=== PATIENT | male | born 1975 | race Caucasian/White ===

== ENCOUNTER 2016-12-03 22:06 | Inpatient (IN) | payer MEDICAID ==
[~2016-12-03] VITALS: Ht 172.7 cm; Wt 80.6 kg
[~2016-12-03 22:06] MED LIST: ASPI81TA3 PO; HYD25 PO; LOSA25TA5 PO; METO-429 PO; TRAM50TA2 PO
[2016-12-03] MEDS ORDERED: hydrALAzine 20 MG INJ ONE (22:40)
[2016-12-03] MEDS ORDERED: ONDANSETRON 4 MG INJ IV STA (22:50)
[2016-12-03] MEDS ORDERED: morphine 4 MG/ML VIAL IV STA (22:50)
[2016-12-03] MEDS ORDERED: SIMV20TA PO (22:53)
[2016-12-03] MEDS ORDERED: HYD25 PO (22:57)
[2016-12-03] MEDS ORDERED: hydrALAzine 20 MG INJ IV ONE (23:00)
[2016-12-03 23:11] LABS: BASOPHILS % 0.3 % (0.0-2.0); EOSINOPHILS # 0.3 10^3/ul (0.0-0.5); EOSINOPHILS % 2.6 % (0.0-7.0); HEMATOCRIT 44.3 % (42.0-52.0); HEMOGLOBIN 15.2 g/dl (14.0-18.0); LYMPHOCYTES # 1.7 10^3/ul (0.8-2.9); LYMPHOCYTES % 14.3 % (15.0-51.0); MEAN CORPUSCULAR HEMOGLOBIN 29.6 pg (29.0-33.0); MEAN CORPUSCULAR HGB CONC 34.3 g/dl (32.0-37.0); MEAN CORPUSCULAR VOLUME 86.2 fl (82.0-101.0); MEAN PLATELET VOLUME 8.8 fl (7.4-10.4); MONOCYTE # 0.6 10^3/ul (0.3-0.9); MONOCYTES % 4.8 % (0.0-11.0); NEUTROPHIL # 9.5 10^3/ul (1.6-7.5); PLATELET COUNT 193 10^3/UL (140-440); RED BLOOD COUNT 5.14 10^6/ul (4.70-6.10); RED CELL DISTRIBUTION WIDTH 13.1 % (11.5-14.5); UNCORRECTED WBC 12.1 10^3/ul (4.8-10.8); WHITE BLOOD COUNT 12.1 10^3/ul (4.8-10.8)
[2016-12-03 23:18] LABS: ALBUMIN 4.3 g/dl (3.3-4.9)
[2016-12-03 23:19] LABS: CHLORIDE 95 mmol/L (97-110); POTASSIUM 3.3 mmol/L (3.5-5.1); SODIUM 138 mmol/L (135-144)
--- NOTE | 2016-12-03 23:19 | RADRPT ---
PROCEDURE: CT Brain without contrast. CLINICAL INDICATION: Headache TECHNIQUE: A multiplanar CT of the brain was performed on a CT scanner utilizing axial imaging fro m the skull base through the vertex without IV contrast. The CTDIvol is 43.16 mGy and the DLP is 72 0.23 mGycm. One or more of the following dose reduction techniques were utilized: Automated exposu re control, adjustment of the mA and/or kV according to patient size, use of iterative reconstructio n technique. COMPARISON: None FINDINGS: No evidence of intracranial hemorrhage or abnormal extra-axial fluid collection. The brain parenchyma is normal attenuation morphology with preservation of olivares white differentiatio n and age appropriate size of the ventricles and subarachnoid spaces. The posterior fossa contents, brainstem, craniocervical junction, orbits, pituitary axis, paranasal sinuses, mastoid air cells, and calvarium are unremarkable. IMPRESSION: 1. No intracranial hemorrhage or acute intracranial. RPTAT:AAJJ Physician Hira Date Time Electronically viewed and signed by Physician Hira on 12/03/2016 23:18 CECILLE/
[2016-12-03 23:20] LABS: INR 0.91; PROTIME 12.3 Sec (12.2-14.2)
[2016-12-03 23:21] LABS: ANION GAP 17 (8-16); ASPARTATE AMINO TRANSFERASE 39 IU/L (15-46); BILIRUBIN,INDIRECT 0.6 mg/dl (0-1.1); BILIRUBIN,TOTAL 0.6 mg/dl (0.2-1.3); CARBON DIOXIDE 29 mmol/L (21-31); CREATININE 0.97 mg/dl (0.61-1.24); PARTIAL THROMBOPLASTIN TIME 24.7 Sec (25.0-35.0)
--- NOTE | 2016-12-03 23:21 | RADRPT ---
PROCEDURE: XR Chest. CLINICAL INDICATION: Chest pain. TECHNIQUE: Single AP portable chest. COMPARISON: 07/04/2016 FINDINGS: The cardiomediastinal silhouette is within normal limits. Marked aortic ectasia and tortuosity withi n the endovascular aortic stent. .The lungs are clear though pleural effusion or focal consolidation . No pneumothorax. The osseous structures and soft tissues are unremarkable. IMPRESSION: No evidence for active cardiopulmonary disease. Aortic ectasia and tortuosity. RPTAT:AAJJ Dung Moya Physician Date Time Electronically viewed and signed by Physician Hira on 12/03/2016 23:20 CECILLE/
[2016-12-03 23:22] LABS: ALANINE AMINOTRANSFERASE 80 IU/L (13-69); ALBUMIN/GLOBULIN RATIO 1.13; ALKALINE PHOSPHATASE 52 IU/L (42-121); BLOOD UREA NITROGEN 20 mg/dl (7-20); GLUCOSE 115 mg/dl (70-220); TOTAL PROTEIN 8.1 g/dl (6.1-8.1)
[2016-12-03 23:30] LABS: CONDITION 1
[2016-12-03 23:31] LABS: B-TYPE NATRIURETIC PEPTIDE 234 PG/ML (0-125)
[2016-12-03 23:35] LABS: TROPONIN-I < 0.012 ng/ml (0.00-0.12)
--- NOTE | 2016-12-03 23:42 | RADRPT ---
PROCEDURE: CT Chest without contrast. CLINICAL INDICATION: Chest pain. TECHNIQUE: CT scan of the chest without contrast was performed on a multidetector high-resolution CT scanner. Coronal and sagittal reformatted images were obtained from the axial source images. The total exam CTDI equals 13.00 mGy and the total exam DLP equals 529.06 mGy-cm. COMPARISON: Plain film chest dated today, about 1 hour ago. FINDINGS: Thoracic aortic endograft is seen, extending from the proximal arch to the distal thoracic aorta, wi th overlying thoracic aortic aneurysm measuring up to about 70 mm in the region of the posterior arc h and up to about 60 mm in diameter in the mid descending aorta. Dystrophic likely calcifications ar e seen within the thrombus at the posterior thoracic aortic arch. Slightly heterogeneous attenuation within the region of aneurysm thrombus suggests the presence of a n endoleak. Recommend CT angiography of the chest for further evaluation for endoleak. The lungs are clear. No focal opacification, effusion, pneumothorax, edema, or nodules are seen. T here is no pulmonary infiltrate. No mass lesion to suggest neoplasm is identified. The central tra cheobronchial tree is clear. The mediastinum is unremarkable without evidence for mass or lymphadenopathy. The vascular structur es of the mediastinum are normal in course and caliber. The heart size is appears mildly enlarged, w ithout evidence for pericardial thickening or effusion. The axillary regions, subpectoral regions, and supraclavicular regions are all unremarkable. The pack rrounding chest wall is unremarkable. Imaging obtained through the upper abdomen reveals fatty infi ltration of the liver. Nonspecific 2 cm soft tissue attenuation lesion in the posterior right hepati c lobe, and ultrasound examination or IV contrast enhanced CT examination of the abdomen and pelvis may be of further use. Differential considerations include neoplasm. Proximal abdominal aortic aneurysm measures up to 50 mm in diameter and mid abdominal aortic aneurys m measures up to about 46 mm in diameter. Otherwise, no upper abdominal viscera abnormality is iden tified. Osseous structures are generally unremarkable. No osteolytic or osteoblastic lesion is detected. IMPRESSION: 1. Endograft in the thoracic aorta, extending from the proximal to mid arch to the distal thoracic aorta. 2. Overlying thoracic aortic aneurysm measures up to about 70 mm in diameter in the region of the p osterior arch and up to about 60 mm in diameter at the mid descending thoracic aorta. 3. Dystrophic likely calcifications within the mural thrombus at the posterior arch. 4. Recommend CT angiography of the chest for further evaluation of the thoracic aorta for endoleak o r other complication, given the patient's current chest pain. 5. Slightly heterogeneous attenuation within the region of aneurysm thrombus suggests the presence of an endoleak. 6. 50 mm diameter proximal abdominal aortic aneurysm. 7. Fatty infiltration of the liver, with suspected 2 cm soft tissue liver mass. Consider ultrasoun d or IV contrast enhanced CT correlation. RPTAT: UU Physician Earle Date Time Electronically viewed and signed by Physician Earle on 12/03/2016 23:42 RS/
[2016-12-04] VITALS (57 sets, daily range): BP systolic 95–152; BP diastolic 44–94; PULSE 52–78; RESP 11–19; Ht 172.7 cm; Wt 80.6 kg
[2016-12-04] MEDS ORDERED: METOCLOPRAMIDE 10 MG INJ IV ONE (01:00)
[2016-12-04] MEDS ORDERED: DILTIAZEM-D5W 125MG/125ML DRIP 125 ML IV SCH (01:00)
[2016-12-04] MEDS: niCARdipine-D5W 0.1MG/ML DRIP 200 ML IV SCH ×2 (01:05→06:06)
[2016-12-04] MEDS ORDERED: LORAZEPAM 2 MG INJ IV PRN (01:30)
[2016-12-04] MEDS ORDERED: NITROGLYCERIN (SL) 0.4 MG TAB SL PRN (01:30)
--- NOTE | 2016-12-04 02:18 | ERA ---
ER Documentation Chief Complaint Date/Time DATE: 12/04/16 TIME: 02:16 Chief Complaint TSANG ASSOCIATED WITH EMESIS AND DIFFUSED CP TODAY. HPI This is a 41-year-old male who comes in with complaints of diffuse chest pain with emesis today. 2 episodes of vomiting which are nonbloody. Chest pain is pressure-like, substernal with no exacerbating relieving factors. Patient does have a history of aortic dissection with endovascular stenting in the past. ROS All systems reviewed and are negative except as per history of present illness. Medications Home Meds Active Scripts Metoprolol Tartrate* (Lopressor*) 50 Mg Tab, 50 MG PO BID, #60 TAB Prov:LAVINIA MEEHAN MD 07/09/16 Aspirin* (Aspirin* Chew) 81 Mg Tab.chew, 81 MG PO DAILY for 30 Days, TAB.CHEW Prov:LAVINIA MEEHAN MD 07/09/16 Losartan Potassium* (Losartan Potassium*) 25 Mg Tablet, 25 MG PO BID for 30 Days , TAB Prov:LAVINIA MEEHAN MD 07/09/16 Reported Medications Hydrochlorothiazide* (Hydrochlorothiazide*) 25 Mg Tab, 25 MG PO DAILY, #30 TAB 12/03/16 Simvastatin* (Zocor*) 20 Mg Tablet, 20 MG PO BID, #30 TAB 12/03/16 Discontinued Scripts Hydrochlorothiazide* (Hydrochlorothiazide*) 25 Mg Tab, 25 MG PO BID, #60 TAB 0 Refills Prov:LAVINIA MEEHAN MD 07/09/16 Tramadol HCl (Tramadol HCl) 50 Mg Tablet, 50 MG PO Q6H Y for PAIN, #45 TAB Prov:LAVINIA MEEHAN MD 07/09/16 Allergies Allergies: Coded Allergies: No Known Allergy (Unverified , 12/03/16) PMhx/Soc History of Surgery: Yes (AORTIC GRAFT) Anesthesia Reaction: No Hx Neurological Disorder: No Hx Respiratory Disorders: No Hx Cardiac Disorders: Yes (HTN,CAD) Hx Psychiatric Problems: No Hx Miscellaneous Medical Probl: No Hx Alcohol Use: Yes (8 beers/ day) Hx Substance Use: No Hx Tobacco Use: No Smoking Status: Former smoker Physical Exam Vitals Vital Signs Date Time Temp Pulse Resp B/P Pulse Ox O2 Delivery O2 Flow Rate FiO2 12/04/16 01:30 60 15 104/65 97 12/04/16 01:15 61 14 113/73 98 Room Air 12/04/16 01:09 15 120/73 99 12/04/16 00:00 59 15 127/70 98 Room Air 12/03/16 22:10 98.1 52 18 179/106 100 Physical Exam Const: [] Head: Atraumatic Eyes: Normal Conjunctiva ENT: Normal External Ears, Nose and Mouth. Neck: Full range of motion..~ No meningismus. Resp: Clear to auscultation bilaterally Cardio: Regular rate and rhythm, no murmurs Abd: Soft, non tender, non distended. Normal bowel sounds Skin: No petechiae or rashes Back: No midline or flank tenderness Ext: No cyanosis, or edema Neur: Awake and alert Psych: Normal Mood and Affect Result Diagram: 12/03/16222412/03/162224 Results 24 hrs Laboratory Tests Test 12/03/16 22:25 Activated Partial Thromboplast Time 24.7Sec Alanine Aminotransferase (ALT/SGPT) 80IU/L Albumin 4.3g/dl Albumin/Globulin Ratio 1.13 Alkaline Phosphatase 52IU/L Anion Gap 17 Aspartate Amino Transf (AST/SGOT) 39IU/L B-Type Natriuretic Peptide 234PG/ML Basophils # 0.010^3/ul Basophils % 0.3% Blood Urea Nitrogen 20mg/dl Calcium Level 9.0mg/dl Carbon Dioxide Level 29mmol/L Chloride Level 95mmol/L Creatinine 0.97mg/dl Direct Bilirubin 0.00mg/dl Eosinophils # 0.310^3/ul Eosinophils % 2.6% Globulin 3.80g/dl Glucose Level 115mg/dl Hematocrit 44.3% Hemoglobin 15.2g/dl INR International Normalized Ratio 0.91 Indirect Bilirubin 0.6mg/dl Lymphocytes # 1.710^3/ul Lymphocytes % 14.3% Mean Corpuscular Hemoglobin 29.6pg Mean Corpuscular Hemoglobin Concent 34.3g/dl Mean Corpuscular Volume 86.2fl Mean Platelet Volume 8.8fl Monocytes # 0.610^3/ul Monocytes % 4.8% Neutrophils # 9.510^3/ul Neutrophils % 78.0% Nucleated Red Blood Cells # 0.010^3/ul Nucleated Red Blood Cells % 0.0/100WBC Platelet Count 77097^3/UL Potassium Level 3.3mmol/L Prothrombin Time 12.3Sec Prothrombin Time Ratio 1.0 Red Blood Count 5.1410^6/ul Red Cell Distribution Width 13.1% Sodium Level 138mmol/L Total Bilirubin 0.6mg/dl Total Protein 8.1g/dl Troponin I < 0.012ng/ml White Blood Count 12.110^3/ul Current Medications Medications (Trade) Dose Ordered Sig/Silvio Route PRN Reason Start Time Stop Time Status Last Admin Dose Admin Hydralazine HCl (Apresoline) 20 mg ONCE ONCE IV 12/03/16 23:00 12/03/16 23:01 DC 12/03/16 22:43 Hydralazine HCl (Apresoline) 20 mg STK-MED ONCE .ROUTE 12/03/16 22:40 12/03/16 22:41 DC Morphine Sulfate (morphine) 4 mg ONCE STAT IV 12/03/16 22:50 12/03/16 22:52 DC 12/03/16 22:55 Ondansetron HCl (Zofran Inj) 4 mg ONCE STAT IV 12/03/16 22:50 12/03/16 22:52 DC 12/03/16 22:54 Metoclopramide HCl 10 mg 10 mg ONCE ONCE IV 12/04/16 01:00 12/04/16 01:01 DC 12/04/16 01:00 Diltiazem HCl 125 ml @ 5 mls/hr TITRATE IV 12/04/16 01:00 Nicardipine HCl 200 ml @ 50 mls/hr TITRATE IV 12/04/16 01:00 12/04/16 01:05 Sodium Chloride (NS) 1,000 ml @ 20 mls/hr Q24H IV 12/04/16 01:12 Ondansetron HCl (Zofran Inj) 4 mg Q6H PRN IV NAUSEA AND/OR VOMITING 12/04/16 01:30 Nitroglycerin (Nitroglycerin (Sl Tab) 0.4 Mg) 1 tab Q5M PRN SL CHEST PAIN 12/04/16 01:30 Acetaminophen (Tylenol Liquid) 650 mg Q6H PRN PO PAIN LEVEL 1-3 OR FEVER 12/04/16 01:30 Morphine Sulfate (morphine) 2 mg Q4H PRN IV PAIN LEVEL 7-10 12/04/16 01:30 Lorazepam (Ativan) 1 mg Q2H PRN IV ANXIETY 1/24/17 01:30 Famotidine (Pepcid Iv) 20 mg Q12 IV 12/04/16 09:00 Aspirin (Aspirin) 81 mg DAILY PO 12/04/16 09:00 Hydrochlorothiazide (Hydrochlorothiazide) 25 mg DAILY PO 12/04/16 09:00 Losartan Potassium (Cozaar) 25 mg BID PO 12/04/16 09:00 Metoprolol Tartrate (Lopressor) 50 mg BID PO 12/04/16 09:00 Miscellaneous Information 20 mg 20 mg BID PO 12/04/16 09:00 UNV Nicardipine HCl/ Dextrose (Cardene Iv/D5W) 250 ml @ 50 mls/hr TITRATE IV 12/04/16 01:30 Atorvastatin Calcium (Lipitor) 10 mg DAILY@21 PO 12/04/16 21:00 Procedures/MDM EKG: Rate/Rhythm: Normal Sinus Rhythm QRS, ST, T-waves: No changes consistent w/ acute ischemia Impression: No evidence of ischemia or arrhythmia Chest X-ray 1V Interpreted by me: Soft Tissue: No acute abnormalities Bones: No acute abnormalities Mediastinum/Cardiac Silhouette/Lungs: No acute abnormalities CT of the chest was done without contrast secondary to injector being broken. CT chest noncontrast showed no extravasation, however the patient will need a repeat scan with IV contrast to rule out any endovascular leakage. Hospitalist compensation associate was made aware. Hospitalist will admit the patient to intensive care unit with a Cardene drip to maintain systolic blood pressure in the 120s. Critical Care: Time: 45 minutes Treatments/Evaluations: Close monitoring and treatment of unstable vital signs, cardiorespiratory, and neurologic status, while maintaining tight balance of fluid, respiratory, and cardiac interventions. Departure Diagnosis: Primary Impression: Chest pain Qualified Code: I20.9 - Ischemic chest pain Additional Impression: Hypertensive emergency Condition: Critical LAVINIA OSPINA Dec 04, 2016 02:17
--- NOTE | 2016-12-04 02:26 | HP ---
Date/Time of Note Date/Time of Note DATE: 12/04/16 TIME: 02:16 Assessment/Plan VTE Prophylaxis VTE Prophylaxis Intervention: SCD's Lines/Catheters IV Catheter Type (from Nrsg): Peripheral IV Assessment/Plan Assessment/Plan 41 yo male with past medical history of aortic aneurysm/dissection s/p endograft placement, essential hypertension, who presents with headache and substernal chest pain. 1. Chest pain - 2/2 ACS vs further type A/B dissection - will admit the patient to the ICU, continue with IV cardene to maintain sbp < 120, IVF, NPO, serial EKGS, cycle cardiac markers, check TSH/Mag levels, morphine/NTG SL for overt pain 2. Aortic Dissection history - see #1, consult cardiology/CT surgery 3. Essential hypertension - continue all home medications, cardene drip to maintain sbp < 120 4. Hypokalemia - replete, check magnesium level 5. Leukocytosis - trend, reactive 6. GI ppx - pepcid IV 7. DVT ppx - scds answered all of his questions. as per clinical course. this critical care note took greater than 1 hour to complete HPI/ROS Admit Date/Time Admit Date/Time 12/04/2016, 2:17 am Hx of Present Illness 41 yo male with past medical history of aortic aneurysm/dissection s/p endograft placement, essential hypertension, who presents with headache and substernal chest pain. He states that the pain started abruptly this evening, and felt like his previous episodes. He was admitted last June, for chest discomfort. Otherwise he complains of chest pressure, radiating axilla to axilla, associated with nausea and 4 episodes of NBNB vomitus. Denies any new foods or acute trauma. He also complains of dizziness, shortness of breath and fatigue. Otherwise no lightheadedness, loss of consciousness, fevers/chills, diarrhea/constipation, urinary/bowel irregularities or other constitutional symptoms. ED course: cardene drip ROS 14 point review of systems completed, please refer to HPI for any positive findings PMH/Family/Social Past Medical History Aortic Aneurysm Medical History: hypertension Past Surgical History s/p endograft placement for aortic dissection/aneurysm Family History Significant Family History: hypertension (mother) Social History Alcohol Use: none Smoking Status: Former smoker Drug Use: none Exam/Review of Systems Vital Signs Vitals Vital Signs Date Time Temp Pulse Resp B/P Pulse Ox O2 Delivery O2 Flow Rate FiO2 12/04/16 01:30 60 15 104/65 97 12/04/16 01:15 Room Air 12/03/16 22:10 98.1 Exam Exam Gen Khari: moderate distress 2/2 chest pain, AAOx4 HEENT: NC/AT, PERRLA, EOMI, no pharyngeal erythema, no tonsillar exudates, no lymphadenopathy, no JVD, no carotid bruits NECK: supple, no thyromegaly THORAX: symmetrical, no obvious deformities CV: S1S2, RRR, II/ systolic murmur best heard over aortic area, +2 pulses equal and symmetrical Lungs: CTAB no W/C/R/R Abd: soft, NT/ND, +BS, no rebound, no guarding, neg HSM EXT: no edema, no ecchymosis, no clubbing, FROM Neuro: CN II-XII grossly intact, no focal deficits Psych: good mentation, alert and oriented, good mood and affect Skin: C/D/I Labs Result Diagram: 12/03/16222412/03/162224 Medications Medications Current Medications Diltiazem HCl 125 ml @ 5 mls/hr TITRATE IV ; Start 12/04/16 at 01:00 Nicardipine HCl 200 ml @ 50 mls/hr TITRATE IV Last administered on 12/04/16t 01:05; Admin Dose 50 MLS/HR; Start 12/04/16 at 01:00 Sodium Chloride (NS) 1,000 ml @ 20 mls/hr Q24H IV ; Start 12/04/16 at 01:12 Ondansetron HCl (Zofran Inj) 4 mg Q6H PRN IV NAUSEA AND/OR VOMITING; Start at 01:30 Nitroglycerin (Nitroglycerin (Sl Tab) 0.4 Mg) 1 tab Q5M PRN SL CHEST PAIN; Start 12/04/16 at 01:30 Acetaminophen (Tylenol Liquid) 650 mg Q6H PRN PO PAIN LEVEL 1-3 OR FEVER; Start 12/04/16 at 01:30 Morphine Sulfate (morphine) 2 mg Q4H PRN IV PAIN LEVEL 7-10; Start 12/04/16 at 01:30 Lorazepam (Ativan) 1 mg Q2H PRN IV ANXIETY; Start 12/04/16 at 01:30 Famotidine (Pepcid Iv) 20 mg Q12 IV ; Start 12/04/16 at 09:00 Aspirin (Aspirin) 81 mg DAILY PO ; Start 12/04/16 at 09:00 Hydrochlorothiazide (Hydrochlorothiazide) 25 mg DAILY PO ; Start 12/04/16 at 09: 00 Losartan Potassium (Cozaar) 25 mg BID PO ; Start 12/04/16 at 09:00 Metoprolol Tartrate 50 mg 50 mg BID PO ; Start 12/04/16 at 09:00 Nicardipine HCl/ Dextrose (Cardene Iv/D5W) 250 ml @ 50 mls/hr TITRATE IV ; Start 12/04/16 at 01:30 Atorvastatin Calcium (Lipitor) 10 mg DAILY@21 PO ; Start 12/04/16 at 21:00 Procedures Procedures CTA chest (no contrast) IMPRESSION: 1. Endograft in the thoracic aorta, extending from the proximal to mid arch to the distal thoracic aorta. 2. Overlying thoracic aortic aneurysm measures up to about 70 mm in diameter in the region of the posterior arch and up to about 60 mm in diameter at the mid descending thoracic aorta. 3. Dystrophic likely calcifications within the mural thrombus at the posterior arch. 4. Recommend CT angiography of the chest for further evaluation of the thoracic aorta for endoleak or other complication, given the patient's current chest pain. 5. Slightly heterogeneous attenuation within the region of aneurysm thrombus suggests the presence of an endoleak. 6. 50 mm diameter proximal abdominal aortic aneurysm. 7. Fatty infiltration of the liver, with suspected 2 cm soft tissue liver mass. Consider ultrasound or IV contrast enhanced CT correlation. CT brain IMPRESSION: 1. No intracranial hemorrhage or acute intracranial. CXR IMPRESSION: No evidence for active cardiopulmonary disease. Aortic ectasia and tortuosity. SHAWN RICHARDSON MD Dec 04, 2016 02:26
[2016-12-04] MEDS ORDERED: POTASSIUM CHLORIDE 250 ML IVPB ONE (02:30)
[2016-12-04] MEDS: SOD CHLORIDE 0.9% 1,000 ML IV SCH (02:58)
[2016-12-04] MEDS ORDERED: METOCLOPRAMIDE 10 MG INJ IV STA (03:30)
[2016-12-04] MEDS: ONDANSETRON 4 MG INJ IV PRN ×2 (06:53→10:11)
[2016-12-04] MEDS: morphine 2 MG INJ IV PRN (06:54)
[2016-12-04 08:43] LABS: BASOPHILS % 0.1 % (0.0-2.0); EOSINOPHILS % 0.1 % (0.0-7.0); HEMATOCRIT 43.2 % (42.0-52.0); HEMOGLOBIN 14.7 g/dl (14.0-18.0); LYMPHOCYTES # 0.8 10^3/ul (0.8-2.9); LYMPHOCYTES % 6.9 % (15.0-51.0); MEAN CORPUSCULAR HEMOGLOBIN 29.6 pg (29.0-33.0); MEAN CORPUSCULAR HGB CONC 34.1 g/dl (32.0-37.0); MEAN CORPUSCULAR VOLUME 86.9 fl (82.0-101.0); MEAN PLATELET VOLUME 8.6 fl (7.4-10.4); MONOCYTE # 0.4 10^3/ul (0.3-0.9); MONOCYTES % 3.4 % (0.0-11.0); NEUTROPHIL # 10.7 10^3/ul (1.6-7.5); NEUTROPHILS % 89.5 % (39.0-77.0); PLATELET COUNT 175 10^3/UL (140-440); RED BLOOD COUNT 4.97 10^6/ul (4.70-6.10); RED CELL DISTRIBUTION WIDTH 12.9 % (11.5-14.5)
[2016-12-04 08:45] LABS: ALBUMIN 4.3 g/dl (3.3-4.9); POTASSIUM 3.7 mmol/L (3.5-5.1)
[2016-12-04 08:47] LABS: BILIRUBIN,INDIRECT 0.6 mg/dl (0-1.1); BILIRUBIN,TOTAL 0.6 mg/dl (0.2-1.3); CREATININE 0.91 mg/dl (0.61-1.24)
[2016-12-04 08:48] LABS: ALBUMIN/GLOBULIN RATIO 1.26; CALCIUM 9.2 mg/dl (8.4-10.2); TOTAL PROTEIN 7.7 g/dl (6.1-8.1)
[2016-12-04 08:53] LABS: CONDITION 1
[2016-12-04] MEDS ORDERED: METOPROLOL 50 MG TAB PO SCH (09:00)
[2016-12-04] MEDS ORDERED: LOSARTAN 25 MG TAB PO SCH ×2 (09:00→21:00)
[2016-12-04] MEDS ORDERED: NON-FORMULARY/PATIENT OWN MED (Simvastatin* (Zocor*) 20 MG) PO SCH (09:00)
[2016-12-04] MEDS: HYDROCHLOROTHIAZIDE 25 MG TAB PO SCH (09:11)
[2016-12-04] MEDS: ASPIRIN 81 MG TAB PO SCH (09:12)
[2016-12-04] MEDS: FAMOTIDINE 20 MG INJ IV SCH ×2 (09:15→20:47)
--- NOTE | 2016-12-04 18:46 | CONS ---
DATE OF ADMISSION: 12/04/2016 DATE OF CONSULTATION: 12/04/2016 REASON FOR CONSULTATION: Aortic aneurysm. Thank you, Dr. Rojas for asking me to see this patient. HISTORY OF PRESENT ILLNESS: This is a 41-year-old male with a history of aortic aneurysm status pos t thoracic endograft that was admitted because of headaches and substernal chest pain. Subsequently , had a chest CT which showed an endograft in the thoracic aorta extending from the proximal to mid arch down to the distal thoracic aorta. The patient had an area overlying aortic aneurysm which is about 60 to 70 mm in diameter. The patient also has an abdominal aortic aneurysm which is about 5 c m in diameter. The patient is currently being treated for chest pain, hypokalemia and leukocytosis. PAST MEDICAL HISTORY: Significant for a history of aortic aneurysm, hypertension and hyperlipidemia . PAST SURGICAL HISTORY: Thoracic endograft. ALLERGIES: NONE. SOCIAL HISTORY: No smoking, drinking or drug use. MEDICATIONS: List reviewed. FAMILY HISTORY: Significant for hypertension in the mother medications include: 1. Lipitor. 2. Pepcid. 3. Aspirin. 4. Hydrochlorothiazide. 5. Lopressor. 6. Reglan. 7. Zofran. 8. Morphine. 9. Ativan. 10. Reglan. 11. Apresoline. REVIEW OF SYSTEMS: Negative. PHYSICAL EXAMINATION: VITAL SIGNS: Blood pressure is 138/80, pulse is 53, respirations 11, saturations 100% on room air. CARDIOVASCULAR: Regular rate and rhythm. LUNGS: Clear. ABDOMEN: Soft. EXTREMITIES: Warm. LABORATORY VALUES: Significant for hemoglobin of 14.7, white count of 12, platelet count of 175. N ormal coagulation factors and a creatinine of 0.91. IMPRESSION: Status post thoracic aortic endograft with a thoracic aneurysm. RECOMMENDATIONS: The patient will need a CT angiogram with contrast to fully evaluate the aneurysma l changes. Discussed with the referring physicians. Dictated By: JOJO CEDILLO/HARRY Conf#: [id number] DID#: [id number]
--- NOTE | 2016-12-04 20:19 | RADRPT ---
Echocardiogram Report Patient Name: JULIANNA CAMP Gender: Male Date: 1975 Study Date: 04-Dec-2016 [place] Inspector: [facility] Location: 120 Ref. Physician: SHAWN RICHARDSON Quality: Good Procedures: Transthoracic echocardiogram with complete 2D, M-Mode, and doppler examination. Indications: Aortic Aneurysm. 2D/M Mode Doppler Measurement Value Normal Ranges Measurement Value Normal Ranges LVIDd 2D 4.3 3.5 - 5.6 cm AV Peak Eliel 1.3 m/sec LVIDs 2D 2.2 2.1 - 4.1 cm AV Peak PG 6.9 mmHg LVPWd 2D 1.2 0.6 - 1.1 cm LVOT Peak Eliel 1.3 m/sec IVSd 2D 1.4 0.6 - 1.1 cm LVOT Peak PG 6.4 mmHg AoR Diam 2D 3.2 2.0 - 3.7 cm MV E Peak Eliel 0.7 m/sec EDV 2D 83.1 cm3 MV A Peak Eliel 0.9 m/sec ESV 2D 10.1 cm3 MV E/A 0.8 LA Dimen 2D 2.8 2.3 - 4.0 cm MV Decel Time 263 msec MV Decel Red [place]ow 3 MV E/A 0.8 Findings Left Ventricle: Normal left ventricular systolic function. Normal left ventricular cavity size. Mild concentric left ventricular hypertrophy. Ejection fraction is visually estimated at 6065 %. Tissue Doppler/Mitral Doppler indices are consistent with impaired relaxation (Stage I diastolic dysfunction). Right Ventricle: Normal right ventricular size. Normal right ventricular systolic function. Left Atrium: The left atrium is normal in size. Right Atrium: The right atrium is normal in size. Mitral Valve: Mitral valve leaflets appear mildly thickened. Mild mitral valve regurgitation. Aortic Valve: Normal appearance of the aortic valve. No significant aortic stenosis or insufficiency. Tricuspid Valve: Normal appearance and function of the tricuspid valve with trace physiologic regurgitation. Pericardium: Normal pericardium with no significant pericardial effusion. Aorta: Sinus of valsalva4.32 cm. IVC: Normal size and normal respiratory collapse consistent with normal right atrial pressure. Conclusions 1.Normal left ventricular systolic function. Normal left ventricular cavity size. Mild concentric left ventricular hypertrophy. Ejection fraction is visually estimated at 60-65 %. Tissue Doppler/Mitral Doppler indices are consistent with impaired relaxation (Stage I diastolic dysfunction). 2.Mitral valve leaflets appear mildly thickened. Mild mitral valve regurgitation. 3.Normal appearance and function of the tricuspid valve with trace physiologic regurgitation. Electronically Signed By: Melvin Steele 04-Dec-2016 20:18:47 -0800 Patient Name: JULIANNA CAMP Study Date: 04-Dec-2016 [id number]
[2016-12-04] MEDS: ATORVASTATIN 10 MG TAB PO SCH (20:46)
[2016-12-04] MEDS: LOSARTAN 50 MG TAB PO SCH (20:47)
[2016-12-04] MEDS ORDERED: IOHEXOL 100 ML ONE (21:55)
[2016-12-04] MEDS ORDERED: SOD CHLORIDE 0.9% 100 ML ONE (21:55)
[2016-12-04] MEDS ORDERED: IOHEXOL 350MG/ML 50 ML BTL ONE (22:40)
[2016-12-04] MEDS: METOPROLOL 50 MG TAB PO SCH (23:03)
--- NOTE | 2016-12-04 23:23 | RADRPT ---
PROCEDURE: CTA chest. CLINICAL INDICATION: Chest pain. Endograft in thoracic aorta with suspected leak. TECHNIQUE: IV contrast enhanced CT scan of the chest was performed on a multidetector high-resolutio n CT scanner. Coronal and sagittal reformatted images were obtained from the axial source images. Th e total exam CTDI equals 60.36 mGy and the total exam DLP equals 734.71 mGy-cm. COMPARISON: Noncontrast CT chest dated 12/03/2016. FINDINGS: Thoracic aortic endograft is again seen, extending from the proximal arch to the distal thoracic aor ta, with overlying thoracic aortic aneurysm measuring up to about 70 mm in the region of the posteri or arch and up to about 60 mm in diameter in the mid descending aorta. Dystrophic calcifications are seen within the thrombus at the posterior thoracic aortic arch, these are without significant kc e since prior noncontrast CT examination. There is an endoleak at the distal endograft likely secondary to imperfect sealing at the landing zo ne within the upper [place] distal thoracic versus proximal abdominal aorta. There is retrograde contrast opacification of the thoracic aortic false lumen. Again seen is a proximal abdominal aortic aneurysm measuring up to 50 mm in diameter and mid abdomin al aortic aneurysm measuring up to about 46 mm in diameter. There is a dissection within the partial ly visualized abdominal aorta, with the false lumen communicating with the thoracic aorta false lume n. The false lumen of the proximal and mid abdominal aortic dissection opacifies with contrast. The celiac trunk, SMA and left renal artery arise from the true lumen. The right renal artery arises from the false lumen. The VIPUL appears to rise from the true lumen. The distal abdominal aorta is tortuous. Mild atelectasis in the posterior mid right lung and in the left lung adjacent to the thoracic aorti c aneurysm. Lungs are otherwise substantially clear. No focal opacification, effusion, pneumothorax , edema, or nodules are seen. There is no pulmonary infiltrate. No mass lesion to suggest neoplasm i s identified. The central tracheobronchial tree is clear. The mediastinum is unremarkable without evidence for mass or lymphadenopathy. The vascular structure s of the mediastinum are normal in course and caliber. The heart size is appears mildly enlarged, wi thout evidence for pericardial thickening or effusion. The axillary regions, subpectoral regions, and supraclavicular regions are all unremarkable. The sony rounding chest wall is unremarkable. Imaging obtained through the upper abdomen again reveals fatty infiltration of the liver. A nonspecific 2 cm soft tissue attenuation lesion is again identified in the posterior right hepatic lobe, and this demonstrates mild peripheral enhancement on today's examination, perhaps representin g a hemangioma. Ultrasound examination would be of further use. Osseous structures are generally unremarkable. No osteolytic or osteoblastic lesion is detected. IMPRESSION: 1. Endograft in the thoracic aorta, extending from the proximal to mid arch to the distal thoracic a claudine. 2. Overlying thoracic aortic aneurysm measures up to about 70 mm in diameter in the region of the po sterior arch and up to about 60 mm in diameter at the mid descending thoracic aorta. 3. Endoleak is seen at the distal endograft, with opacification of the false thoracic aortic lumen w ith IV contrast. 4. 50 mm diameter proximal abdominal aortic aneurysm, with dissection of the proximal to distal abdo asim aorta. 5. The celiac trunk, SMA, left renal artery and VIPUL arise from the true lumen and the right renal ar pramod arises from the false lumen. 6. Fatty infiltration of the liver, with suspected 2 cm soft tissue liver mass which demonstrates mi ld peripheral enhancement. Differential considerations include a hemangioma. RPTAT: [facility] Physician Earle Date Time Electronically viewed and signed by Physician Earle on 12/04/2016 23:23 RS/
[2016-12-05] VITALS (44 sets, daily range): BP systolic 107–155; BP diastolic 60–103; PULSE 50–74; RESP 10–24
[2016-12-05] MEDS: SOD CHLORIDE 0.9% 1,000 ML IV SCH (01:18)
[2016-12-05] MEDS: ACETAMINOPHEN 650MG/20.3ML CUP PO PRN ×2 (01:22→21:27)
[2016-12-05 04:55] LABS: BASOPHILS % 0.4 % (0.0-2.0); EOSINOPHILS # 0.4 10^3/ul (0.0-0.5); EOSINOPHILS % 4.2 % (0.0-7.0); HEMATOCRIT 43.2 % (42.0-52.0); HEMOGLOBIN 14.8 g/dl (14.0-18.0); LYMPHOCYTES # 2.3 10^3/ul (0.8-2.9); LYMPHOCYTES % 21.4 % (15.0-51.0); MEAN CORPUSCULAR HEMOGLOBIN 29.8 pg (29.0-33.0); MEAN CORPUSCULAR HGB CONC 34.3 g/dl (32.0-37.0); MEAN CORPUSCULAR VOLUME 86.8 fl (82.0-101.0); MEAN PLATELET VOLUME 8.5 fl (7.4-10.4); MONOCYTE # 0.8 10^3/ul (0.3-0.9); PLATELET COUNT 217 10^3/UL (140-440); RED BLOOD COUNT 4.97 10^6/ul (4.70-6.10); UNCORRECTED WBC 10.6 10^3/ul (4.8-10.8); WHITE BLOOD COUNT 10.6 10^3/ul (4.8-10.8)
[2016-12-05 05:00] LABS: CONDITION 1
[2016-12-05 05:05] LABS: POTASSIUM 3.2 mmol/L (3.5-5.1)
[2016-12-05 05:08] LABS: CREATININE 1.17 mg/dl (0.61-1.24)
[2016-12-05 05:09] LABS: CALCIUM 9.1 mg/dl (8.4-10.2); MAGNESIUM 1.7 mg/dl (1.7-2.5); PHOSPHORUS 3.1 mg/dl (2.5-4.9)
[2016-12-05 05:10] LABS: CHOL/HDL RATIO 3.2 RATIO
[2016-12-05] MEDS: METOPROLOL 50 MG TAB PO SCH ×3 (06:13→21:28)
[2016-12-05] MEDS: morphine 2 MG INJ IV PRN ×3 (06:18→23:03)
--- NOTE | 2016-12-05 06:26 | CONS ---
DATE OF ADMISSION: 12/04/2016 DATE OF CONSULTATION: 12/04/2016 REASON FOR CONSULTATION: Abnormal aortic aneurysm. Abnormal EKG. Assess for acute coronary syndro me. REQUESTING PHYSICIAN: Dr. Rojas from the hospitalist service. HISTORY OF PRESENT ILLNESS: Mr. Harrell is a 41-year-old male with a history of abdominal aortic ane urysm, status post prior stent graft repair, aortic dissection, status post stent graft repair, hype rtension, dyslipidemia, who initially presented with complaints of substernal chest pain, abdominal pain, nausea, and vomiting. Upon arrival in the emergency department, temperature of 98.1, blood pressure ____, pulse 50, respir ations 18, saturation 100%. Patient's labs revealed a white count of 12.1, hemoglobin 15.2, platelet count of 193. Sodium of 13 8, potassium 3.3, creatinine of 0.9, BUN 20, AST 39, ALT 80. Troponin negative. BNP of 234. INR 0 .91. The patient underwent a chest x-ray revealing no evidence for acute cardiopulmonary disease, aortic ectasia, and tortuosity. The patient underwent a head CT revealing no intracranial hemorrhage or acute intracranial abnormali ties. The patient underwent a chest CT revealing endograft of the thoracic aorta extending from the proxim al to mid arch of distal thoracic aorta overlying thoracic ____ measuring up to 70 mm in diameter in the region of the posterior arch, ____ mm in diameter at the mid descending thoracic aorta. Dystro phic like calcification within the mural thrombus at the posterior arch. ____ mm diameter proximal abdominal and aortic arch aneurysm. Patient's electrocardiogram revealed sinus bradycardia, rate of 55, with left axis deviation and non specific IVCD and secondary repolarization abnormalities. Patient subsequently admitted to the ICU where he remains at this time. The patient has been treate d with baseline beta lis, Cozaar, hydrochlorothiazide, at this time is on a nicardipine drip. PAST MEDICAL HISTORY: As above in HPI. MEDICATIONS CURRENTLY IN HOSPITAL: 1. Lipitor 10 mg at bedtime. 2. Pepcid 20 mg IV q.12h. 3. Aspirin 81 mg daily. 4. Hydrochlorothiazide 25 mg daily. 5. Cozaar 25 mg p.o. b.i.d. 6. Metoprolol 50 mg b.i.d. 7. Zocor p.r.n. 8. Nitroglycerin p.r.n. 9. Tylenol p.r.n. 10. Morphine p.r.n. 11. Nicardipine IV. 12. IV fluid hydration at 20 mL an hour. ALLERGIES: NO KNOWN DRUG ALLERGIES. SOCIAL HISTORY: No tobacco, ETOH, or illicit drug use. FAMILY HISTORY: No history of sudden cardiac or early CAD. REVIEW OF SYSTEMS: As above in HPI. CONSTITUTIONAL: No fevers, chills. PULMONARY: Shortness of breath. CARDIOVASCULAR: Intermittent chest pain, none currently. Ascending abdominal aortic aneurysm. GASTROINTESTINAL: Prior nausea and vomiting, none currently. GENITOURINARY: No hematuria. MUSCULOSKELETAL: Degenerative joint disease. PSYCHIATRIC: The patient denies depression. NEUROLOGIC: No documented history of CVA. PHYSICAL EXAMINATION VITAL SIGNS: Temperature of 98.4, blood pressure most recently 138/80, pulse 53, respiratory rate o f 11, saturating 100% on room air. GENERAL: The patient is alert, awake, in no acute distress. NECK: JVP approximately 8 to 9 cm of water. CHEST: Fair air movement throughout. HEART: Regular rate and rhythm noted. S1, S2, 1/6 systolic murmur, nondisplaced PMI. ABDOMEN: Positive bowel sounds, soft. EXTREMITIES: No pitting edema, 1+ pulses bilaterally, posterior tibial. LABORATORIES: As above in HPI with most recently from today, sodium 138, potassium 3.7, creatinine of 0.9, BUN 19. Troponin negative x2. TSH of 1.48. White count 12, hemoglobin 14.7, platelet coun t of 175, INR of 0.91. IMAGING STUDIES: As above in HPI. No further imaging studies for my review at this time. ECG: As above in HPI. No further electrocardiograms for my review at this time. IMPRESSION: 1. Chest pain, assess for acute coronary syndrome. 2. Abnormal electrocardiogram with nonspecific ST-T wave abnormalities, assess for acute coronary s yndrome. 3. Hypertension, under improved control on oral antihypertensives and nicardipine drip. 4. History of dyslipidemia. 5. History of aortic dissection, status post stent graft repair with now aneurysmal sections and po ssible leak. 6. Leukocytosis. RECOMMENDATIONS: 1. At this time, would maintain patient on beta blockade with up titration as necessary to improve overall systolic blood pressure control, and continue the patient's Cozaar and hydrochlorothiazide w ith possible further up titration of Cozaar to improve overall systolic blood pressure control after weaning off on nicardipine 2. Continue patient's baby aspirin for prophylaxis against cardiovascular events. 3. Continue the patient's statin and adjust it according to a fasting lipid panel check. 4. We will check a 2D echocardiogram for reassessment of the patient's ejection fraction, wall shanae on, and any major valve abnormalities in anticipation of possible need for further coming repeat sony amara. 5. Complete a rule out for myocardial infarction to ensure that the patient's chest pain and EKG ab normalities are not indicative of an acute coronary syndrome such as acute myocardial infarction. 6. Continue to check serial EKGs to assess for any significant ongoing changes, and EKG in the morn ing for any chest pain or change in rhythm. 7. Pending CT, a vascular surgical consultation. Dictated By: LM BELTRÁN/HARRY Conf#: [id number] DID#: [id number]
[2016-12-05] MEDS ORDERED: POTASSIUM CHLORIDE 250 ML IVPB ONE (07:00)
--- NOTE | 2016-12-05 09:07 | PN ---
Date/Time of Note Date/Time of Note DATE: 12/05/16 TIME: 08:57 Assessment/Plan Lines/Catheters Urinary Cath still in place: No Assessment/Plan Assessment/Plan 41 yo male with past medical history of aortic aneurysm/dissection s/p endograft placement, essential hypertension, who presents with headache and substernal chest pain. 1. Chest pain - 2/2 ACS vs further type A/B dissection - 2. Aortic Dissection 3. Essential hypertension 4. Hypokalemia - 5. Leukocytosis - GI ppx - pepcid IV DVT ppx - scds Subjective 24 Hr Interval Summary Free Text/Dictation Patient seen and examined. Exam/Review of Systems Vital Signs Vitals Vital Signs Date Time Temp Pulse Resp B/P Pulse Ox O2 Delivery O2 Flow Rate FiO2 12/05/16 06:15 68 15 120/78 96 12/05/16 04:00 98.0 12/05/16 02:00 Room Air Intake and Output 12/04/16 12/04/16 12/05/16 15:00 23:00 07:00 Intake Total 320 ml 440 ml 160 ml Output Total 2300 ml 650 ml Balance 320 ml -1860 ml -490 ml Exam GENERAL: Patient is alert, oriented x 3, in no apparent distress; does not appear acutely or chronically ill. Patient is able to sit up unassisted.Patient makes good eye contact, is conversant, interactive, coherent. Patient appears calm and comfortable and is able to follow commands. HEENT: Oropharynx is clear. There is no carotid bruit, no masses. Patient's pupils are equal, round and reactive to light bilaterally. Extraocular motions are intact. There is no scleral icterus. There is no facial asymmetry. NECK: Supple. LUNGS: Clear to auscultation bilaterally with good air entry. No Wheezes or crackles. HEART: S1, S2. No murmur, gallops or rubs. Regular rate and rhythm. ABDOMEN: Soft, nontender. Normoactive bowel sounds. There are no stigmata of chronic liver disease. BACK: no costovertebral angle tenderness. GENITOURINARY: Deferred. EXTREMITIES: No edema. There is no cyanosis, clubbing. There are 2+ pulses bilaterally distally. NEUROLOGIC: The patient has no lateralizing signs. Cranial nerves II-XII are intact. SKIN: Otherwise, unremarkable. Results Result Diagram: 12/05/160 12/05/16 043 Results 24 hrs Laboratory Tests Test 12/05/16 04:30 Anion Gap 15 Basophils # 0.0 Basophils % 0.4 Blood Urea Nitrogen 18 Calcium Level 9.1 Carbon Dioxide Level 29 Chloride Level 98 Cholesterol Level 164 Cholesterol/HDL Ratio 3.2 Creatinine 1.17 Eosinophils # 0.4 Eosinophils % 4.2 Glucose Level 94 HDL Cholesterol 50 Hematocrit 43.2 Hemoglobin 14.8 LDL Cholesterol, Calculated 88 Lymphocytes # 2.3 Lymphocytes % 21.4 Magnesium Level 1.7 Mean Corpuscular Hemoglobin 29.8 Mean Corpuscular Hemoglobin Concent 34.3 Mean Corpuscular Volume 86.8 Mean Platelet Volume 8.5 Monocytes # 0.8 Monocytes % 8.0 Neutrophils # 7.0 Neutrophils % 66.0 Nucleated Red Blood Cells # 0.0 Nucleated Red Blood Cells % 0.0 Phosphorus Level 3.1 Platelet Count 217 # Potassium Level 3.2 L Red Blood Count 4.97 Red Cell Distribution Width 13.0 Sodium Level 139 Triglycerides Level 129 White Blood Count 10.6 Medications Medications Current Medications Diltiazem HCl 125 ml @ 5 mls/hr TITRATE IV ; Start 12/04/16 at 01:00 Nicardipine HCl 200 ml @ 50 mls/hr TITRATE IV Last administered on 12/04/16 06:06; Admin Dose 40 MLS/HR; Start 12/04/16 at 01:00 Sodium Chloride (NS) 1,000 ml @ 20 mls/hr Q24H IV Last administered on 01:18; Admin Dose 20 MLS/HR; Start 12/04/16 at 01:12 Ondansetron HCl (Zofran Inj) 4 mg Q6H PRN IV NAUSEA AND/OR VOMITING Last administered on 12/04/16 10:11; Admin Dose 4 MG; Start 12/04/16 at 01:30 Nitroglycerin (Nitroglycerin (Sl Tab) 0.4 Mg) 1 tab Q5M PRN SL CHEST PAIN; Start 12/04/16 at 01:30 Acetaminophen (Tylenol Liquid) 650 mg Q6H PRN PO PAIN LEVEL 1-3 OR FEVER Last administered on 12/05/16 01:22; Admin Dose 650 MG; Start 12/04/16 at 01:30 Morphine Sulfate (morphine) 2 mg Q4H PRN IV PAIN LEVEL 7-10 Last administered on 12/05/16 06:18; Admin Dose 2 MG; Start 12/04/16 at 01:30 Lorazepam (Ativan) 1 mg Q2H PRN IV ANXIETY; Start 12/04/16 at 01:30 Famotidine (Pepcid Iv) 20 mg Q12 IV Last administered on 12/04/16 20:47; Admin Dose 20 MG; Start 12/04/16 at 09:00 Aspirin (Aspirin) 81 mg DAILY PO Last administered on 12/04/16 09:12; Admin Dose 81 MG; Start 12/04/16 at 09:00 Hydrochlorothiazide 25 mg 25 mg DAILY PO Last administered on 12/04/16 09:11; Admin Dose 25 MG; Start 12/04/16 at 09:00 Nicardipine HCl/ Dextrose (Cardene Iv/D5W) 250 ml @ 50 mls/hr TITRATE IV ; Start 12/04/16 at 01:30 Atorvastatin Calcium (Lipitor) 10 mg DAILY@21 PO Last administered on 20:46; Admin Dose 10 MG; Start 12/04/16 at 21:00 Metoprolol Tartrate (Lopressor) 50 mg Q8 PO Last administered on 12/05/16 06: 13; Admin Dose 50 MG; Start 12/04/16 at 22:00 Losartan Potassium 50 mg 50 mg BID PO Last administered on 12/04/16 20:47; Admin Dose 50 MG; Start 12/04/16 at 21:00 Potassium Chloride (KCl 40 MEQ/250 ML NS) 250 ml @ 62.5 mls/hr ONCE ONCE IVPB ; Start 12/05/16 at 07:00; Stop 12/05/16 at 10:59 HELEN CASTELLANOS Dec 05, 2016 09:07
[2016-12-05] MEDS: HYDROCHLOROTHIAZIDE 25 MG TAB PO SCH (09:08)
[2016-12-05] MEDS: ASPIRIN 81 MG TAB PO SCH (09:08)
[2016-12-05] MEDS: LOSARTAN 50 MG TAB PO SCH ×2 (09:09→20:49)
[2016-12-05] MEDS ORDERED: POTASSIUM CHLORIDE (SR) 20 MEQ TAB PO ONE ×2 (09:30→12:30)
[2016-12-05] MEDS: FAMOTIDINE 20 MG INJ IV SCH ×2 (09:37→21:27)
[2016-12-05] MEDS ORDERED: morphine 2 MG INJ IV ONE (10:30)
--- NOTE | 2016-12-05 12:21 | CONS ---
Date/Time of Note Date/Time of Note DATE: 12/05/16 TIME: 12:19 Assessment/Plan Assessment/Plan Additional Assessment/Plan 1. Chest pain, assess for acute coronary syndrome - r/o [place] - doubt acute schemia. 2. Abnormal electrocardiogram with nonspecific ST-T wave abnormalities, assess for acute coronary syndrome. 3. Hypertension, under improved control on oral antihypertensives - will try to get to gal of < 120/80, but at 140 SBP reasonable for now while awaiting surgical dispo. 4. History of dyslipidemia - statin to follow. 5. History of aortic dissection, status post stent graft repair with now aneurysmal sections and possible leak. Vascular team follows. 6. Leukocytosis- anti-bx as needed. Consultation Date/Type/Reason Admit Date/Time Dec 04, 2016 at 01:18 Initial Consult Date 24 HR Interval Summary Free Text/Dictation No acute change - BP stable - wll adjust Rx as tolerated. ROS: No fever, no chills, no nausea, no vomiting, no diarrhea/constipation No recent weight changes No chest pain, no PND, no orthopnea No dizziness, blurred vision No thirst, no heat or cold intolerance Exam/Review of Systems Vital Signs Vitals Vital Signs Date Time Temp Pulse Resp B/P Pulse Ox O2 Delivery O2 Flow Rate FiO2 12/05/16 08:00 52 12/05/16 06:15 15 120/78 96 12/05/16 04:00 98.0 12/05/16 02:00 Room Air Intake and Output 12/04/16 12/04/16 12/05/16 15:00 23:00 07:00 Intake Total 320 ml 440 ml 160 ml Output Total 2300 ml 650 ml Balance 320 ml -1860 ml -490 ml Exam General: WN/WD/NAD, AOx comfortable - morphine rx as needed for pain HEENT: Unicetric/atraumatic/EOMI ( follow commands) NECK: JVD elevated, no thyromegaly Lymph: no lymphadenopathy HEART: regular with no S3, II/ systolic murmur at apex LUNGS: Coarse sounds ABD: soft, NT, ND, +BS : Intact Neuro: non focal SKIN: chronic changes EXT: trace edema Results Result Diagram: 12/05/16 0430 12/05/16 0430 Results 24 hrs Laboratory Tests Test 12/05/16 04:30 Anion Gap 15 Basophils # 0.0 Basophils % 0.4 Blood Urea Nitrogen 18 Calcium Level 9.1 Carbon Dioxide Level 29 Chloride Level 98 Cholesterol Level 164 Cholesterol/HDL Ratio 3.2 Creatinine 1.17 Eosinophils # 0.4 Eosinophils % 4.2 Glucose Level 94 HDL Cholesterol 50 Hematocrit 43.2 Hemoglobin 14.8 LDL Cholesterol, Calculated 88 Lymphocytes # 2.3 Lymphocytes % 21.4 Magnesium Level 1.7 Mean Corpuscular Hemoglobin 29.8 Mean Corpuscular Hemoglobin Concent 34.3 Mean Corpuscular Volume 86.8 Mean Platelet Volume 8.5 Monocytes # 0.8 Monocytes % 8.0 Neutrophils # 7.0 Neutrophils % 66.0 Nucleated Red Blood Cells # 0.0 Nucleated Red Blood Cells % 0.0 Phosphorus Level 3.1 Platelet Count 217 # Potassium Level 3.2 L Red Blood Count 4.97 Red Cell Distribution Width 13.0 Sodium Level 139 Triglycerides Level 129 White Blood Count 10.6 Medications Medications Current Medications Sodium Chloride (NS) 1,000 ml @ 20 mls/hr Q24H IV Last administered on 01:18; Admin Dose 20 MLS/HR; Start 12/04/16 at 01:12 Ondansetron HCl (Zofran Inj) 4 mg Q6H PRN IV NAUSEA AND/OR VOMITING Last administered on 12/04/16 10:11; Admin Dose 4 MG; Start 12/04/16 at 01:30 Nitroglycerin (Nitroglycerin (Sl Tab) 0.4 Mg) 1 tab Q5M PRN SL CHEST PAIN; Start 12/04/16 at 01:30 Acetaminophen (Tylenol Liquid) 650 mg Q6H PRN PO PAIN LEVEL 1-3 OR FEVER Last administered on 12/05/16 01:22; Admin Dose 650 MG; Start 12/04/16 at 01:30 Morphine Sulfate (morphine) 2 mg Q4H PRN IV PAIN LEVEL 7-10 Last administered on 12/05/16 10:15; Admin Dose 2 MG; Start 12/04/16 at 01:30 Lorazepam (Ativan) 1 mg Q2H PRN IV ANXIETY; Start 12/04/16 at 01:30 Famotidine (Pepcid Iv) 20 mg Q12 IV Last administered on 12/05/16 09:37; Admin Dose 20 MG; Start 12/04/16 at 09:00 Aspirin (Aspirin) 81 mg DAILY PO Last administered on 12/05/16 09:08; Admin Dose 81 MG; Start 12/04/16 at 09:00 Hydrochlorothiazide 25 mg 25 mg DAILY PO Last administered on 12/05/16 09:08; Admin Dose 25 MG; Start 12/04/16 at 09:00 Nicardipine HCl/ Dextrose (Cardene Iv/D5W) 250 ml @ 50 mls/hr TITRATE IV ; Start 12/04/16 at 01:30 Atorvastatin Calcium (Lipitor) 10 mg DAILY@21 PO Last administered on 20:46; Admin Dose 10 MG; Start 12/04/16 at 21:00 Metoprolol Tartrate (Lopressor) 50 mg Q8 PO Last administered on 12/05/16 06: 13; Admin Dose 50 MG; Start 12/04/16 at 22:00 Losartan Potassium (Cozaar) 50 mg BID PO Last administered on 12/05/16 09:09; Admin Dose 50 MG; Start 12/04/16 at 21:00 Potassium Chloride (Klor-Con 20) 40 meq ONCE ONCE PO ; Start 12/05/16 at 12:30 ; Stop 12/05/16 at 12:31 KARIS MAYER MD Dec 05, 2016 12:21
--- NOTE | 2016-12-05 14:49 | RADRPT ---
Vent Rate: 59 bpm RR Interval: 0 msec WI Interval: 188 msec QRS Duration: 106 msec QT Interval: 440 msec QTC Interval: 435 msec P-R-T [place]: 38 - -71 - 75 degrees Sinus bradycardia Possible Left atrial enlargement Left axis deviation Pulmonary disease pattern Incomplete right bundle branch block Abnormal ECG Electronically Signed By: Abdullahi Osullivan [id number]
[2016-12-05] MEDS: ATORVASTATIN 10 MG TAB PO SCH (20:49)
[2016-12-06] VITALS (21 sets, daily range): BP systolic 97–148; BP diastolic 65–98; PULSE 52–76; RESP 11–18
[2016-12-06] MEDS: SOD CHLORIDE 0.9% 1,000 ML IV SCH (00:54)
[2016-12-06] MEDS: METOPROLOL 50 MG TAB PO SCH (05:28)
[2016-12-06] MEDS: morphine 2 MG INJ IV PRN (05:28)
--- NOTE | 2016-12-06 09:36 | CONS ---
Date/Time of Note Date/Time of Note DATE: 12/06/16 TIME: 09:34 Assessment/Plan Assessment/Plan Additional Assessment/Plan 1. Chest pain, assess for acute coronary syndrome - r/o [place] - doubt acute ischemia. 2. Abnormal electrocardiogram with nonspecific ST-T wave abnormalities, assess for acute coronary syndrome. 3. Hypertension, under improved control on oral antihypertensives - will try to get to gal of < 120/80, but at 140 SBP reasonable for now while awaiting surgical dispo - BETTER controlled now 4. History of dyslipidemia - statin to follow. 5. History of aortic dissection, status post stent graft repair with now aneurysmal sections and possible leak. Vascular team follows - defer to them for planing 6. Leukocytosis- anti-bx as needed. Consultation Date/Type/Reason Admit Date/Time Dec 04, 2016 at 01:18 24 HR Interval Summary Free Text/Dictation NO acute change -BP better controlled now. ROS: No fever, no chills, no nausea, no vomiting, no diarrhea/constipation No recent weight changes No chest pain, no PND, no orthopnea No dizziness, blurred vision No thirst, no heat or cold intolerance Exam/Review of Systems Vital Signs Vitals Vital Signs Date Time Temp Pulse Resp B/P Pulse Ox O2 Delivery O2 Flow Rate FiO2 12/06/16 09:00 53 14 109/65 92 12/06/16 08:30 98.1 12/05/16 10:00 Room Air Intake and Output 12/05/16 12/05/16 12/06/16 15:00 23:00 07:00 Intake Total 450 ml 520 ml Output Total 1400 ml 850 ml Balance -950 ml -330 ml Exam General: WN/WD/NAD, AOx 3 HEENT: Unicetric/atraumatic/EOMI (follow commands) NECK: JVD elevated, no thyromegaly Lymph: no lymphadenopathy HEART: regular with no S3, II/ systolic murmur at apex LUNGS: Coarse sounds ABD: soft, NT, ND, +BS : Intact Neuro: non focal SKIN: chronic changes EXT: trace edema Results Result Diagram: 12/05/16 04312/05/16 043 Results 24 hrs Laboratory Tests Test 12/05/16 18:20 12/06/16 00:43 12/06/16 04:40 Troponin I < 0.012 < 0.012 < 0.012 Medications Medications Current Medications Sodium Chloride (NS) 1,000 ml @ 20 mls/hr Q24H IV Last administered on 01:18; Admin Dose 20 MLS/HR; Start 12/04/16 at 01:12 Ondansetron HCl (Zofran Inj) 4 mg Q6H PRN IV NAUSEA AND/OR VOMITING Last administered on 12/04/16 10:11; Admin Dose 4 MG; Start 12/04/16 at 01:30 Nitroglycerin (Nitroglycerin (Sl Tab) 0.4 Mg) 1 tab Q5M PRN SL CHEST PAIN; Start 12/04/16 at 01:30 Acetaminophen (Tylenol Liquid) 650 mg Q6H PRN PO PAIN LEVEL 1-3 OR FEVER Last administered on 12/05/16 21:27; Admin Dose 650 MG; Start 12/04/16 at 01:30 Morphine Sulfate (morphine) 2 mg Q4H PRN IV PAIN LEVEL 7-10 Last administered on 12/06/16 05:28; Admin Dose 2 MG; Start 12/04/16 at 01:30 Lorazepam (Ativan) 1 mg Q2H PRN IV ANXIETY; Start 12/04/16 at 01:30 Famotidine (Pepcid Iv) 20 mg Q12 IV Last administered on 12/05/16 21:27; Admin Dose 20 MG; Start 12/04/16 at 09:00 Aspirin (Aspirin) 81 mg DAILY PO Last administered on 12/05/16 09:08; Admin Dose 81 MG; Start 12/04/16 at 09:00 Hydrochlorothiazide 25 mg 25 mg DAILY PO Last administered on 12/05/16 09:08; Admin Dose 25 MG; Start 12/04/16 at 09:00 Nicardipine HCl/ Dextrose (Cardene Iv/D5W) 250 ml @ 50 mls/hr TITRATE IV ; Start 12/04/16 at 01:30 Atorvastatin Calcium (Lipitor) 10 mg DAILY@21 PO Last administered on 20:49; Admin Dose 10 MG; Start 12/04/16 at 21:00 Metoprolol Tartrate (Lopressor) 50 mg Q8 PO Last administered on 12/06/16 05: 28; Admin Dose 50 MG; Start 12/04/16 at 22:00 Losartan Potassium (Cozaar) 50 mg BID PO Last administered on 12/05/16t 20:49; Admin Dose 50 MG; Start 12/04/16 at 21:00 KARIS MAYER MD Dec 06, 2016 09:36
[2016-12-06] MEDS: FAMOTIDINE 20 MG INJ IV SCH (09:37)
[2016-12-06] MEDS: LOSARTAN 50 MG TAB PO SCH (09:38)
[2016-12-06] MEDS: ASPIRIN 81 MG TAB PO SCH (09:38)
[2016-12-06] MEDS: HYDROCHLOROTHIAZIDE 25 MG TAB PO SCH (09:38)
[2016-12-06] MEDS ORDERED: METO-429 PO ×2 (11:03)
[2016-12-06] MEDS ORDERED: LOSA25TA5 PO (11:03)
--- NOTE | 2016-12-06 11:22 | PDOCDIS ---
Discharge Instructions DIAGNOSIS Discharge Diagnosis: Chest pain / aortic aneurysm CONDITION Patient Condition: Stable HOME CARE INSTRUCTIONS: Diet Instructions: Reduced SodiumSpecial Diet: Low Cholesterol / low Fat ACTIVITY: Activity Restrictions: Slowly Increase Activity Rest between Activity OTHER ORDERS: Other Orders: Please take copies of CT scans and discharge summary to [facility] / [place] as soon as possible for followup. * NO SALTY FOODS LIKE CHIPS HELEN CASTELLANOS Dec 06, 2016 11:22
[2016-12-06] MEDS: ACETAMINOPHEN 650MG/20.3ML CUP PO PRN (11:26)
--- NOTE | 2016-12-06 11:54 | PN ---
Date/Time of Note Date/Time of Note DATE: 12/06/16 TIME: 11:53 Assessment/Plan Lines/Catheters IV Catheter Type (from Nrsg): Saline Lock Menezes in Place (from Nrsg): No Assessment/Plan Chief Complaint/Hosp Course SP Thoracic aortic graft pt to report to his thoracic surgeon as pout pt discussed with Dr Hagan Problems: Subjective 24 Hr Interval Summary Constitutional: improved Pain Control: mild Exam/Review of Systems Vital Signs Vitals Vital Signs Date Time Temp Pulse Resp B/P Pulse Ox O2 Delivery O2 Flow Rate FiO2 12/06/16 10:30 76 17 127/91 99 Room Air 12/06/16 08:30 98.1 Intake and Output 12/05/16 12/05/16 12/06/16 15:00 23:00 07:00 Intake Total 450 ml 520 ml Output Total 1400 ml 850 ml Balance -950 ml -330 ml Exam ENMT: mucosa pink and moist, nl external ears & nose, nl lips & teeth, nl nasal mucosa & septum Neck: non-tender, supple Respiratory: clear to auscultation, normal air movement Cardiovascular: nl pulses, regular rate and rhythm Results Result Diagram: 12/05/16 0430 12/05/16 0430 JOJO BURDEN MD Dec 06, 2016 11:54
--- NOTE | 2016-12-06 12:53 | DS ---
DATE OF ADMISSION: 12/04/2016 DATE OF DISCHARGE: 12/06/2016 PRESENTING COMPLAINT: Headache and substernal chest pain. ADMISSION DIAGNOSES: 1. Chest pain, rule out acute coronary syndrome versus further type A/B dissection. 2. History of aortic dissection. 3. Essential hypertension. 4. Hypokalemia. 5. Reactive leukocytosis. CONSULTS ON THE CASE: Dr. Melvin Steele and Dr. Nadir Romero. INTERVENTIONS: A 2D echocardiogram 12/04/2016 showed: 1. Normal left ventricular systolic function. 2. Normal left ventricular cavity size. 3. Mild concentric left ventricular hypertrophy. 4. Ejection fraction visually estimated at 60% to 65%. 5. Mitral valve leaflets appear mildly thickened. Mild mitral valve regurgitation. 6. Appearance and function of the tricuspid valve with trace physiological regurgitation. 7. Stage I diastolic dysfunction. This was done 12/04/2016. He had a chest x-ray 12/03/2016 that showed no evidence of active cardiopulmonary disease. He had a CT scan of the brain 12/03/2016 that showed no intracranial hemorrhage or acute intracrania l pathology. He had a CT scan of the chest without IV contrast done 12/03/2016 that showed the followin. Endograft in the thoracic aorta extending from the proximal to mid to the distal thoracic aorta. 2. Overlying thoracic aortic aneurysm measures up to about 70 mm in diameter in the region of the p osterior and 60 mm in diameter at the mid descending thoracic aorta. 3. Dystrophic calcifications within the mural thrombus at the posterior . 4. Recommended CT angiography of the chest for further evaluation of thoracic aorta for endoleak or other complication given current chest pain. 5. Slightly heterogeneous attenuation within the region of aneurysm thrombus, suggestive of the pre ssures of an endoleak. 6. A 50 mm diameter proximal abdominal aortic aneurysm. 7. Fatty liver with 2 cm soft tissue liver mass. The patient underwent a CT angiogram of the chest for further clarification that showed the followin . An endograft mid thoracic aorta extending from the proximal to mid , to the distal thoracic aorta. 2. Overlying thoracic aneurysm measuring 17 mm in diameter in the region of the posterior back and up to about 60 mm in diameter of the mid descending thoracic aorta. 3. Confirmation of endoleak at the distal endograft with opacification of the false thoracic aortic lumen with IV contrast. 4. A 50 mm diameter proximal abdominal aortic aneurysm with dissection of the proximal to distal ab dominal aorta. 5. Celiac trunk, superior mesenteric artery, left renal artery and inferior mesenteric artery arise s from the true lumen, while the right renal artery arises from the false lumen. 6. Fatty liver with a suspected 2 cm soft tissue liver mass for which differential include a isabella ioma. HOSPITAL COURSE: Full details are available in the chart for review. In summary, this patient was admitted after he presented with chest pain and was admitted to the intensive care unit on a beta bl ocker drip for strict blood pressure as well as heart rate control. He was also ruled out for an ac ellie coronary syndrome and his symptoms resolved. He was seen by vascular surgery and they had recom mended a CT angiogram. Findings of the CT angiogram were summarized above. At this time, I have spoken with the vascular surgeon and I have spoken with the lathe set up person. The patient has very good blood pressure control with systolics 120 or less and diastolics 80 or less, a nd his heart rate has consistently remained in the 60s on oral medications only. The drips have bee n off for about 24 hours. It is the recommendation of the vascular surgeon that patient followup ri ght away at [facility] where his endograft was placed less than about a few months ago, for evaluat ion of his abdominal aneurysm. The patient tells us that he was told to follow up in 1 year w ith good blood pressure and heart rate control; however, Dr. Romero believes surgery might have to be done sooner than later. So at this time, the patient remains in stable condition. I spent extensive time explaining our findings and recommendations to both him and his , and the disposition is for him to follow up at [facility] with his surgeons for review of his abdominal an eurysm and the presence of probable dissection. FINAL DIAGNOSES: 1. Chest pain, now resolved, acute coronary syndrome ruled out. 2. 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 3. 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 4. Abdominal aortic aneurysm with concerns for dissection of the proximal to distal abdominal aorta measuring about 50 mm in diameter in the proximal part. 5. Fatty liver with a 2 cm hemangioma in the right hepatic lobe. 6. Reactive leukocytosis, now resolved. 7. Hypokalemia, status post replacement. RECOMMENDED DIET: Low sodium, low cholesterol, low fat. ACTIVITIES: As tolerated. The patient encouraged to avoid tachycardia while staying hydrated and p erforming gentle exercises only if he has to. FOLLOWUP: Recommended followup is [facility] with his prior surgeon as soon as possible. DISCHARGE MEDICATIONS 1. Metoprolol titrate 50 mg with lunch only and 75 mg with breakfast and dinner. 2. Aspirin 81 p.o. daily. 3. Hydrochlorothiazide 25 daily. 4. Zocor 20 b.i.d. 5. Losartan 50 mg b.i.d. Overall time spent on discharge planning so far has been about 45 minutes. For clarification and fu rther information, please review the patient's chart and my orders. Dictated By: HELEN CASTELLANOS MD, BA/HARRY Conf#: [id number] DID#: [id number]
== END 2016-12-06 13:15 | disposition home or self-care (01) | DRG 313 ==
LOC: E/R 22:06 → ICU 12-04 01:18 → E/R 12-04 04:47
PROVIDERS: ADMIT Student in an Organized Health Care Education/Training Program; ATTEND Student in an Organized Health Care Education/Training Program
DX: R07.9 Chest pain, unspecified (principal); I25.10 Atherosclerotic heart disease of native coronary artery without angina pectoris; K76.0 Fatty (change of) liver, not elsewhere classified; I10 Essential (primary) hypertension; E87.6 Hypokalemia; R94.31 Abnormal electrocardiogram [ECG] [EKG]; Z87.891 Personal history of nicotine dependence; Z86.79 Personal history of other diseases of the circulatory system; Z79.82 Long term (current) use of aspirin
CPT/HCPCS: 36415; 70450; 71010; 71250; 71275; 80048; 80053; 80061; 83036; 83735; 83880; 84100; 84443; 84484; 85025; 85610; 85730; 87081; 93005; 93306; 96374; 96375; J0360; J2270; J2405; J2765; J3480; J7030; Q9967

== ENCOUNTER 2018-07-02 16:58 | Emergency (ER) | END 2018-07-02 23:23 | disposition short-term general hospital (02) ==

== ENCOUNTER 2018-07-16 06:29 | Emergency (ER) | END 2018-07-16 19:30 | disposition short-term general hospital (02) ==

== ENCOUNTER 2019-02-11 19:02 | Emergency (ER) | payer SELFPAY ==
[~2019-02-11] VITALS: Ht 172.7 cm; Wt 76.8 kg
[~2019-02-11 19:02] MED LIST changes: +ASPI-817 PO; -ASPI81TA3 PO; -HYD25 PO; +HYDR25TA6 PO; -LOSA25TA5 PO; +METO-319 PO; -METO-429 PO; +SIMV20TA PO; -TRAM50TA2 PO
[2019-02-11 20:09] VITALS: BP 184/102; PULSE 81; RESP 17; Ht 172.7 cm; Wt 76.8 kg
== END 2019-02-12 02:38 | disposition left against medical advice (07) ==
LOC: E/R 19:02
DX: Z53.21 Procedure and treatment not carried out due to patient leaving prior to being seen by health care provider (principal)
CPT/HCPCS: 99281